=== PATIENT | female | born 1985 | race African-American/Black ===

== ENCOUNTER 2020-05-07 17:07 | Emergency (ER) | payer SELFPAY ==
[~2020-05-07] VITALS: Ht 165.1 cm; Wt 150.5 kg
[2020-05-07] MEDS ORDERED: SODIUM CHLORIDE FLUSH 10ML SYR IVF ONE (17:30)
[2020-05-07] MEDS ORDERED: DIPHENHYDRAMINE 50 MG/ML, 1ML ONE ×4 (17:55→20:41)
[2020-05-07] MEDS ORDERED: HYDROmorphone 2 MG/ML, 1ML ONE ×4 (17:56→20:41)
[2020-05-07] MEDS: PLEASE ENTER ALLERGIES MC SCH ×2 (17:59→19:09)
[2020-05-07] MEDS ORDERED: DIPHENHYDRAMINE 50 MG/ML, 1ML IVPush ONE ×4 (18:00→21:00)
[2020-05-07] MEDS ORDERED: HYDROmorphone 1 MG/ML, 1ML INJ IV ONE ×4 (18:00→21:00)
[2020-05-07] MEDS ORDERED: SODIUM CHLORIDE 0.9% 1,000ML IVBOLUS ONE (18:00)
[2020-05-07 18:04] LABS: BASOPHILS % (AUTO) 1 % (0-1); EOSINOPHILS % (AUTO) 2 % (1-7); LYMPHOCYTES % (AUTO) 38 % (22-44); MEAN CORPUSCULAR HEMOGLOBIN 21.8 pg (27.0-34.8); MEAN CORPUSCULAR HGB CONC 32.2 g/dL (32.4-35.8); MEAN PLATELET VOLUME 8.5 fL (7.4-10.4); MONOCYTES % (AUTO) 6 % (2-9); NEUTROPHILS % (AUTO) 54 % (42-75); PLATELET COUNT 431 x10^3/uL (130-400); RED BLOOD COUNT 4.22 x10^6/uL (3.82-5.3); RED CELL DISTRIBUTION WIDTH 27.1 % (9.6-15.2)
[2020-05-07 18:10] LABS: ABSOLUTE RETICS # 0.088 x10^6/uL (0.5-2.5); RED BLOOD COUNT 4.17 x10^6/uL (3.82-5.3); RETICULOCYTE COUNT % 2.12 % (0.5-1.5)
[2020-05-07 18:12] LABS: ALANINE AMINOTRANSFERASE 16 U/L (12-78); ALBUMIN 3.4 g/dL (3.4-5.0); ANION GAP 8 mmol/L (5-15); CHLORIDE 108 mmol/L (98-107); CREATININE 0.59 mg/dL (0.55-1.02)
[2020-05-07 18:14] LABS: ALKALINE PHOSPHATASE 49 U/L (45-117); BILIRUBIN,TOTAL 0.1 mg/dL (0.2-1.0); TOTAL PROTEIN 7.2 g/dL (6.4-8.2)
[2020-05-07 18:32] LABS: MD MORPH REVIEW ONLY
[2020-05-07 18:33] LABS: ANISOCYTOSIS 2+; HYPOCHROMIA 1+; MICROCYTOSIS 1+
[2020-05-07 18:34] LABS: <PLATELET ESTIMATE> INCREASED; <PLT MORPHOLOGY> NORMAL PLT MORPH; OVALOCYTES 1+; POLYCHROMASIA 1+; TEAR DROPS 1+
--- NOTE | 2020-05-07 19:08 | NUR ---
pt in bed with no signs or symptoms of acute dsitrss noted respirations even and unlabored, in room with lights low for comfort. pt with ivf infusing slowly at left wrist, pt states pain is slowly improving after iv medication. pt on diagnostic cardiac sonographer with bed rails up bilaterally and call light within reach.
--- NOTE | 2020-05-07 19:58 | NUR ---
pt in bed with no signs or symptoms of acute dsitrss noted respirations even and unlabored pt reports feeling better, pt requesting for food, pt provided one sandwich and bag of chips and some soda. pt verbalizes appreication for cares and concern. pt on diagnostic cardiac sonographer with ivf infusing slowly at l wrist, o2 via nasal cannula at 2l/min, and call light in hand.
--- NOTE | 2020-05-07 20:10 | NUR ---
pt states she feels well enough to go home, states she had a md appointment at home on and she would like rx to go home with that will cover her until next doctor visit. note left for provider. pt in bed with no signs or symptoms of acute distress noted respirations even and unlabored, ivf infusing slowly in left wrist, pt on software project lead with o2 via nasal cannula at 2l/min, and bed rails up bilaterally. call light within reach. pt able to consume 100% of offered meal.
[2020-05-07 20:56] VITALS: BP 133/86
== END 2020-05-07 21:08 | disposition home or self-care (01) ==
LOC: ED 21:02
DX: D57.00 Hb-SS disease with crisis, unspecified (principal); M79.641 Pain in right hand; M79.642 Pain in left hand; M79.605 Pain in left leg; M79.604 Pain in right leg; Z79.899 Other long term (current) drug therapy
CPT/HCPCS: 36415; 80053; 84703; 85025; 85045; 96361; 96374; 96375; 96376; 99285; J1170; J1200; J7030

== ENCOUNTER 2020-05-09 14:44 | Emergency (ER) | payer SELFPAY ==
[~2020-05-09] VITALS: Ht 165.1 cm; Wt 150.7 kg
--- NOTE | 2020-05-09 15:30 | NUR ---
O2 being administered. Working to obtain IV access.
--- NOTE | 2020-05-09 15:45 | NUR ---
Pt complains of constant pain "everywhere. Started in my legs, so I took a shower and layed back down. But it just keep spreading."
[2020-05-09] MEDS ORDERED: DIPHENHYDRAMINE 50 MG/ML, 1ML ONE ×2 (16:13→16:43)
[2020-05-09] MEDS ORDERED: HYDROmorphone 2 MG/ML, 1ML ONE ×2 (16:13→16:42)
--- NOTE | 2020-05-09 16:23 | NUR ---
This RN drawing up medications and diluting in flush, pt states "no they don't do that they just give it to me." This RN educated pt about personal practice to dilute meds in flush for easier slower admin. Pt attitude changed, no longer conversing with this RN
[2020-05-09] MEDS ORDERED: DIPHENHYDRAMINE 50 MG/ML, 1ML IVPush ONE ×2 (16:30→17:00)
[2020-05-09] MEDS ORDERED: SODIUM CHLORIDE 0.9% 1,000ML IVBOLUS ONE (16:30)
[2020-05-09] MEDS ORDERED: SODIUM CHLORIDE FLUSH 10ML SYR IVF ONE (16:30)
[2020-05-09] MEDS ORDERED: HYDROmorphone 1 MG/ML, 1ML INJ IV ONE ×2 (16:30→18:00)
[2020-05-09 16:46] LABS: MEAN CORPUSCULAR HEMOGLOBIN 21.5 pg (27.0-34.8); MEAN CORPUSCULAR HGB CONC 31.8 g/dL (32.4-35.8); MEAN PLATELET VOLUME 8.4 fL (7.4-10.4); PLATELET COUNT 427 x10^3/uL (130-400); RED CELL DISTRIBUTION WIDTH 26.7 % (9.6-15.2)
[2020-05-09 16:49] LABS: ALBUMIN 3.4 g/dL (3.4-5.0); CALCIUM 7.9 mg/dL (8.5-10.1)
[2020-05-09 16:55] LABS: ALANINE AMINOTRANSFERASE 16 U/L (12-78); ALKALINE PHOSPHATASE 46 U/L (45-117); BILIRUBIN,TOTAL 0.2 mg/dL (0.2-1.0); CREATININE 0.51 mg/dL (0.55-1.02)
[2020-05-09 17:01] LABS: ANION GAP 6 mmol/L (5-15); CHLORIDE 108 mmol/L (98-107)
[2020-05-09 17:13] LABS: MD MORPH REVIEW ONLY
[2020-05-09 17:14] LABS: RETICULOCYTE COUNT % 1.87 % (0.5-1.5)
[2020-05-09 17:15] LABS: ABSOLUTE RETICS # 0.079 x10^6/uL (0.5-2.5)
[2020-05-09 17:18] LABS: <PLATELET ESTIMATE> INCREASED; ANISOCYTOSIS 2+; HYPOCHROMIA 1+; LARGE PLATELETS 1+; MICROCYTOSIS 1+
[2020-05-09 17:19] LABS: OVALOCYTES 1+
[2020-05-09 17:21] LABS: BASOPHILS % (AUTO) 1 % (0-1); EOSINOPHILS % (AUTO) 2 % (1-7); LYMPHOCYTES % (AUTO) 42 % (22-44); MONOCYTES % (AUTO) 6 % (2-9); NEUTROPHILS % (AUTO) 49 % (42-75)
[2020-05-09] MEDS ORDERED: HYDROmorphone 1 MG/ML, 1ML INJ ONE (17:42)
--- NOTE | 2020-05-09 18:01 | NUR ---
Pt sitting up right in bed, eating.
[2020-05-09 18:49] VITALS: BP 130/90
--- NOTE | 2020-05-09 18:53 | NUR ---
[place] colvin in ED - 05/09/20 at 1854 by LAKHWINDER patient getting dressed at this time for dc. bedside report received from delfina DODSON
--- NOTE | 2020-05-09 18:54 | NUR ---
previous note by this RN done on wrong patient
== END 2020-05-09 18:55 | disposition home or self-care (01) ==
LOC: ED 18:01
DX: D57.00 Hb-SS disease with crisis, unspecified (principal); R10.9 Unspecified abdominal pain; Z86.718 Personal history of other venous thrombosis and embolism
CPT/HCPCS: 36415; 71045; 80053; 84703; 85025; 85045; 93005; 96361; 96374; 96375; 96376; 99285; J1170; J1200; J7030

== ENCOUNTER 2020-05-10 15:30 | Emergency (ER) | payer SELFPAY ==
[~2020-05-10] VITALS: Ht 165.1 cm; Wt 149.9 kg
--- NOTE | 2020-05-10 15:53 | NUR ---
Pt arrived complaints of sickle cell crisis that was exacerbated by the elevation of [place]. Pain is "all over". Pt states that she is visting from [facility] for a friends wedding. Placed on continous BP and O2 monitors. IV placed, meds administered, fluids running. JAIMIE. MARÍA ELENA.
[2020-05-10] MEDS ORDERED: SODIUM CHLORIDE FLUSH 10ML SYR IVF ONE (16:30)
[2020-05-10] MEDS ORDERED: HYDROmorphone 1 MG/ML, 1ML INJ IV ONE ×2 (16:30→20:00)
[2020-05-10] MEDS ORDERED: SODIUM CHLORIDE 0.9% 1,000ML IVBOLUS ONE (16:30)
[2020-05-10] MEDS ORDERED: DIPHENHYDRAMINE 50 MG/ML, 1ML IVPush ONE (16:30)
[2020-05-10] MEDS ORDERED: DIPHENHYDRAMINE 50 MG/ML, 1ML ONE (16:44)
[2020-05-10] MEDS ORDERED: HYDROmorphone 2 MG/ML, 1ML ONE ×3 (16:44→19:59)
--- NOTE | 2020-05-10 17:32 | NUR ---
PIV inserted and pt medicated per order. Pt provided warm blankets per request, denies other needs.
[2020-05-10 17:53] LABS: ABSOLUTE RETICS # 0.086 x10^6/uL (0.5-2.5); MEAN CORPUSCULAR HEMOGLOBIN 21.6 pg (27.0-34.8); MEAN CORPUSCULAR HGB CONC 31.8 g/dL (32.4-35.8); MEAN PLATELET VOLUME 8.2 fL (7.4-10.4); PLATELET COUNT 437 x10^3/uL (130-400); RED BLOOD COUNT 4.32 x10^6/uL (3.82-5.3); RED CELL DISTRIBUTION WIDTH 26.3 % (9.6-15.2); RETICULOCYTE COUNT % 1.98 % (0.5-1.5)
[2020-05-10 18:03] LABS: MD YES
[2020-05-10 18:07] LABS: ALBUMIN 3.5 g/dL (3.4-5.0); ANION GAP 8 mmol/L (5-15); CHLORIDE 109 mmol/L (98-107)
--- NOTE | 2020-05-10 18:07 | NUR ---
pt resting in bed watching videos on her phone, states that she is still having pain rated a 9/10. notified.
[2020-05-10 18:08] LABS: CREATININE 0.57 mg/dL (0.55-1.02)
[2020-05-10 18:20] LABS: BASOS#(MANUAL) 0.04 x10^3/uL (0-0.1); BASOS% (MANUAL) 1 % (0-1); EOS#(MANUAL) 0.04 x10^3/uL (0.0-0.4); EOS% (MANUAL) 1 % (1-7); LYMPH#(MANUAL) 1.63 x10^3/uL (1-3.4); LYMPHS% (MANUAL) 38 % (22-44); MONOS#(MANUAL) 0.22 x10^3/uL (0.3-2.7); MONOS% (MANUAL) 5 % (2-9); SEG#(MANUAL) 2.37 x10^3/uL (1.8-6.8); SEGS% (MANUAL) 55 % (42-75)
[2020-05-10 18:21] LABS: ANISOCYTOSIS 2+; HYPOCHROMIA 1+; MICROCYTOSIS 1+; OVALOCYTES 1+
[2020-05-10 18:22] LABS: POLYCHROMASIA 1+; TEAR DROPS 1+
[2020-05-10 18:26] LABS: <PLATELET ESTIMATE> INCREASED
[2020-05-10 18:27] LABS: LARGE PLATELETS 1+
[2020-05-10] MEDS ORDERED: HYDROmorphone 2 MG/ML, 1ML IV ONE (18:30)
--- NOTE | 2020-05-10 18:58 | NUR ---
Report given to Cheryl DODSON
--- NOTE | 2020-05-10 20:06 | NUR ---
pt medicated per emar
[2020-05-10 20:31] VITALS: BP 136/80
== END 2020-05-10 20:33 | disposition home or self-care (01) ==
LOC: ED 15:49
DX: D57.00 Hb-SS disease with crisis, unspecified (principal); Z86.718 Personal history of other venous thrombosis and embolism
CPT/HCPCS: 36415; 80048; 82040; 85025; 85045; 96361; 96374; 96375; 96376; 99285; J1170; J1200; J7030